=== PATIENT | female | born 1960 | race Two or more races ===

== ENCOUNTER 2018-08-05 07:15 | Inpatient (IN) | payer OTHER ==
[~2018-08-05] VITALS: Ht 162.6 cm; Wt 88.9 kg
[~2018-08-05 07:15] MED LIST: COZAAR50 MG
[2018-08-05] MEDS ORDERED: TOPROL XL25 M1 PO (09:12)
[2018-08-05] MEDS ORDERED: HYDROCHLOROTH12.5 M1 PO (09:12)
[2018-08-05] MEDS ORDERED: NAPR500T14 PO (09:13)
[2018-08-05] MEDS ORDERED: GABAPENTIN800 MG PO (09:13)
[2018-08-13] MEDS ORDERED: OXYC1TAB9 PO (06:47)
[2018-08-13] MEDS ORDERED: XARELTO10 MG PO (06:47)
[2018-08-13] MEDS ORDERED: INTEGRA PLUS C1 EACH PO (06:47)
== END 2018-08-13 13:06 | DRG 470 ==
LOC: SURH 08-11 05:18 → O/R 08-11 05:18 → SURH 08-11 07:15
PROVIDERS: Orthopaedic Surgery Sports Medicine
PROC: 0SRC0J9 Replacement of Right Knee Joint with Synthetic Substitute, Cemented, Open Approach (ICD-10-PCS; principal; 2018-08-11 09:30)
DX: M17.11 Unilateral primary osteoarthritis, right knee (principal)

== ENCOUNTER 2024-06-17 13:22 | Emergency (ER) | payer OTHER ==
[~2024-06-17] VITALS: Ht 167.6 cm; Wt 68.0 kg
[~2024-06-17 13:22] MED LIST changes: +CIPRO500 MG PO; +GABAPENTIN800 MG PO; +HYDROCHLOROTH12.5 M1 PO; +INTEGRA PLUS C1 EACH PO; +LEVSIN/SL0.125 MG SL; +METRONIDAZOLE500 MG PO; +NAPR500T14 PO; +NORVASC5 MG; +OXYC1TAB9 PO; +PROTONIX40 MG PO; +TOPROL XL25 M1 PO; +XARELTO10 MG PO
[2024-06-17] MEDS ORDERED: FAMOtidine 10 MG/ML (4ML VIAL) IV STA (15:00)
[2024-06-17] MEDS ORDERED: METOCLOPRAMIDE HCL 5 MG/ML VIAL IV STA (15:01)
[2024-06-17] MEDS ORDERED: FAMOtidine 200mg/20ml VIAL ONE (15:22)
[2024-06-17] MEDS ORDERED: METOCLOPRAMIDE HCL 5 MG/ML VIAL ONE (15:22)
[2024-06-17 15:48] LABS: HEMATOCRIT 40.2 % (36.0-45.00); HEMOGLOBIN 13.5 g/dL (12.0-15.00); MEAN CELL VOLUME 85.9 fL (80.00-100.00); MEAN CORPUSCULAR HEMOGLOBIN 28.8 pg (27.00-32.0); MEAN CORPUSCULAR HGB CONC 33.6 g/dl (32.0-36.0); PLATELET COUNT 319 K/uL (150-450); RED BLOOD COUNT 4.67 M/uL (4.00-6.00); RED CELL DISTRIBUTION WIDTH 14.7 % (11.5-14.5)
[2024-06-17 15:55] LABS: CREATININE SERUM 0.8 mg/dL (0.55-1.02); GFR 72.44; POTASSIUM 3.93 mEq/L (3.5-5.1)
[2024-06-17 16:11] LABS: URINE APPEARANCE Clear; URINE BILIRRUBIN Negative (NEGATIVE); URINE BLOOD Negative; URINE COLOR Yellow; URINE GLUCOSE Negative (NEGATIVE); URINE LEUKOCYTE Trace; URINE NITRATE Negative; URINE PROTEIN Negative (NEGATIVE); URINE UROBILINOGEN 0.2 E.U./dl
[2024-06-17 16:14] LABS: URINE EPITHELIAL CELLS 2.9 uL (0.0-38.8); URINE RBC 4.1 uL (0.0-20.8); URINE WBC 4.9 uL (0.0-23.2)
== END 2024-06-17 17:22 | disposition home or self-care (01) ==
LOC: ER 13:23
PROVIDERS: General Practice
DX: K29.70 Gastritis, unspecified, without bleeding (principal); R10.9 Unspecified abdominal pain; I10 Essential (primary) hypertension